=== PATIENT | male | born 1965 | race Caucasian/White ===

== ENCOUNTER 2016-05-22 06:34 | Inpatient (IN) | payer MEDICAID ==
[~2016-05-22] VITALS: Ht 177.8 cm; Wt 124.7 kg
[~2016-05-22 06:34] MED LIST: AMIO200T2 PO; CARV3.122 PO; DABI150C PO; DIVA500T17 PO; FLUO40CA9 PO; FURO40TA4 PO; GABA-585 PO; GABA-586 PO; HYDR-971 PO; HYDR25TA PO; MELO-156 PO; METF500T4 PO; MULT1TAB52 PO; PANT40TA3 PO; PARO40TA3 PO; POTA20TA12 PO; PRAZ1CAP2 PO; RISP0.5T3 PO; SPIR25TA3 PO; TRAZ100T12 PO; VALS40TA2 PO; VENL75CA6 PO
[2016-05-22] MEDS ORDERED: ONDANSETRON PF 4 MG/2 ML VIAL. IV ONE (07:15)
[2016-05-22] MEDS ORDERED: MORPHINE SULFATE 4 MG/ML DISP.SYRIN. IV ONE ×2 (07:15→08:45)
[2016-05-22] MEDS ORDERED: IOHEXOL 300 MG/ML 75 ML VIAL IV ONE (07:15)
[2016-05-22] MEDS ORDERED: IV NORMAL SALINE 500ML BAG 500 ML IV ONE (07:15)
[2016-05-22 07:25] LABS: BASO # 0.1 x10^3/uL (0.0-0.2); BASO % 1 % (0-3); EOS % 5 % (0-3); HEMATOCRIT 47.8 % (39.0-53.0); HEMOGLOBIN 16.5 g/dL (13.0-17.5); LYMPH # 2.8 x10^3/uL (1.0-4.8); LYMPH % 36 % (24-48); MEAN CORPUSCULAR HEMOGLOBIN 35 pg (25-35); MEAN CORPUSCULAR HGB CONC 34 g/dL (31-37); MEAN CORPUSCULAR VOLUME 101 fL (79-100); MONO % 8 % (0-9); NEUT % 50 % (31-73); PLATELET COUNT 162 x10^3/uL (140-400); RED BLOOD COUNT 4.75 x10^6/uL (4.30-5.70); RED CELL DISTRIBUTION WIDTH 12.4 % (11.5-14.5); WHITE BLOOD COUNT 7.8 x10^3/uL (4.0-11.0)
[2016-05-22] MEDS ORDERED: CONTRAST GIVEN MC PRN (07:30)
[2016-05-22 07:35] LABS: GFR 79.8; POTASSIUM 3.3 mmol/L (3.5-5.1)
[2016-05-22 07:41] LABS: ALBUMIN 3.7 g/dL (3.4-5.0); TOTAL BILIRUBIN 0.3 mg/dL (0.2-1.0); TOTAL PROTEIN 7.5 g/dL (6.4-8.2)
[2016-05-22 07:42] LABS: BILIRUBIN,URINE NEGATIVE (NEG); GLUCOSE,URINE >=1000 mg/dL (NEG); NITRITE,URINE NEGATIVE (NEG); PH,URINE 6.5; PROTEIN,URINE NEGATIVE (NEG-TRACE)
--- NOTE | 2016-05-22 07:42 | PHYS DOC ---
Past Medical History Past Medical History: Alcoholism, CHF, Depression, Diabetes-Type II, Heart Disease, Hypertension, Other Additional Past Medical Histor: viral cardiomyopathy, obese, suicide attempt Past Surgical History: Cholecystectomy, Pacemaker, Other Additional Past Surgical Histo: DEFIBRILLATOR, MRSA Alcohol Use: Occasionally Drug Use: None Adult General Chief Complaint Chief Complaint: ABDOMINAL PAIN HPI HPI Patient is a 50 year old male who presents with L side abdominal pain. Patient reports for the past week he has been feeling nauseous and vomiting. He says that what he vomits up is undigested. For the past two days he has been having L sided abdominal pain, feeling bloated, having chills and subjective fever. He also feels SOB, although this is a chronic problem. No chest pain. He has not taken anything for symptoms. No clear inciting or mitigating factors. Review of Systems Review of Systems Constitutional: Chills, subjective fever Eyes: Denies change in visual acuity or eye pain HENT: Denies nasal congestion or sore throat Respiratory: Shortness of breath (chronic) Cardiovascular: Denies chest pain GI: L side abdominal pain, nausea, vomiting, bloating. Denies bloody stools or diarrhea : Denies dysuria or hematuria Musculoskeletal: Denies back pain or joint pain Integument: Denies rash or skin lesions Neurologic: Denies headache, focal weakness or sensory changes Current Medications Current Medications Current Medications Medications (Trade) Dose Ordered Sig/Payam Start Time Stop Time Status Last Admin Dose Admin Info (Do NOT chart on this entry -- for MONITORING) 1 each PRN DAILY PRN 05/22/16 07:30 05/24/16 07:29 Iohexol (Omnipaque 300 Mg/ml) 75 ml 1X ONCE 05/22/16 07:15 05/22/16 07:18 DC Morphine Sulfate 4 mg 4 mg 1X ONCE 05/22/16 08:45 05/22/16 08:46 DC 05/22/16 08:46 4 MG Ondansetron HCl 4 mg 4 mg 1X ONCE 05/22/16 07:15 05/22/16 07:16 DC 05/22/16 07:16 4 MG Promethazine HCl/ Sodium Chloride (Phenergan/Iv Sodium Chloride 0.9% 50ml) 50.5 ml @ 151.5 mls/ hr 1X ONCE 05/22/16 10:15 05/22/16 10:34 DC 05/22/16 10:35 151.5 MLS/HR Sodium Chloride (Iv Sodium Chloride 0.9% 500ml Bag) 500 ml @ 150 mls/hr 1X ONCE 05/22/16 07:15 05/22/16 10:34 DC 05/22/16 07:16 150 MLS/HR Allergies Allergies Allergies Coded Allergies Type Severity Reaction Last Updated Verified nitroglycerin Allergy Severe Anaphylaxis 03/28/15 Yes CHEL Inhibitors Allergy Intermediate 07/23/15 Yes inositol niacinate Allergy Intermediate 05/22/16 Yes niacin Allergy Intermediate 05/22/16 Yes quetiapine Allergy Intermediate 05/22/16 Yes Physical Exam Physical Exam Constitutional: Well developed, well nourished, no acute distress, non-toxic appearance HENT: Normocephalic, atraumatic, bilateral external ears normal Eyes: EOMI, conjunctiva normal, no discharge Neck: Normal range of motion, no stridor Cardiovascular: Mild tachycardia, regular rhythm, no murmur Lungs & Thorax: Bilateral breath sounds clear to auscultation Abdomen: Protuberant, bowel sounds normal, soft, non-distended, LUQ/LLQ TTP without guarding or rebound Skin: Warm, dry, no erythema, no rash Extremities: No obvious deformity, no edema Neurologic: Alert and oriented X 3, no gross deficits noted Psychologic: Affect normal, judgement normal, mood normal Current Patient Data Vital Signs Vital Signs Date Time Temp Pulse Resp B/P Pulse Ox O2 Delivery O2 Flow Rate FiO2 05/22/16 10:37 94 18 147/89 98 05/22/16 06:44 98 Room Air 98.0 Lab Values Laboratory Tests Test 05/22/16 06:54 05/22/16 07:20 White Blood Count 7.8x10^3/uL (4.0-11.0) Red Blood Count 4.75x10^6/uL (4.30-5.70) Hemoglobin 16.5g/dL (13.0-17.5) Hematocrit 47.8% (39.0-53.0) Mean Corpuscular Volume 101fL (79-100) H Mean Corpuscular Hemoglobin 35pg (25-35) Mean Corpuscular Hemoglobin Concent 34g/dL (31-37) Red Cell Distribution Width 12.4% (11.5-14.5) Platelet Count 162x10^3/uL (140-400) Neutrophils (%) (Auto) 50% (31-73) Lymphocytes (%) (Auto) 36% (24-48) Monocytes (%) (Auto) 8% (0-9) Eosinophils (%) (Auto) 5% (0-3) H Basophils (%) (Auto) 1% (0-3) Neutrophils # (Auto) 3.9x10^3uL (1.8-7.7) Lymphocytes # (Auto) 2.8x10^3/uL (1.0-4.8) Monocytes # (Auto) 0.6x10^3/uL (0.0-1.1) Eosinophils # (Auto) 0.4x10^3/uL (0.0-0.7) Basophils # (Auto) 0.1x10^3/uL (0.0-0.2) Sodium Level 142mmol/L (136-145) Potassium Level 3.3mmol/L (3.5-5.1) L Chloride Level 101mmol/L (98-107) Carbon Dioxide Level 30mmol/L (21-32) Anion Gap 11 (6-14) Blood Urea Nitrogen 10mg/dL (8-26) Creatinine 1.0mg/dL (0.7-1.3) Estimated GFR (Cockcroft-Gault) 79.8 BUN/Creatinine Ratio 10 (6-20) Glucose Level 249mg/dL (70-99) H Calcium Level 9.0mg/dL (8.5-10.1) Total Bilirubin 0.3mg/dL (0.2-1.0) Aspartate Amino Transferase (AST) 53U/L (15-37) H Alanine Aminotransferase (ALT) 84U/L (16-63) H Alkaline Phosphatase 86U/L (46-116) Troponin I Quantitative 0.017ng/mL (0.000-0.055) RY-Can-C-Type Natriuretic Peptide 620pg/mL (0-124) H Total Protein 7.5g/dL (6.4-8.2) Albumin 3.7g/dL (3.4-5.0) Albumin/Globulin Ratio 1.0 (1.0-1.7) Lipase 230U/L (73-393) Urine Collection Type Unknown Urine Color Yellow Urine Clarity Clear Urine pH 6.5 Urine Specific [place] >=1.030 Urine Protein Negativemg/dL (NEG-TRACE) Urine Glucose (UA) >=1000mg/dL (NEG) Urine Ketones (Stick) Negativemg/dL (NEG) Urine Blood Negative (NEG) Urine Nitrite Negative (NEG) Urine Bilirubin Negative (NEG) Urine Urobilinogen Dipstick 1.0mg/dL (0.2 mg/dL) Urine Leukocyte Esterase Negative (NEG) Urine RBC 0/HPF (0-2) Urine WBC 0/HPF (0-4) Urine Squamous Epithelial Cells Occ/LPF Urine Bacteria 0/HPF (0-FEW) Urine Mucus Slight/LPF Laboratory Tests 05/22/16 06:54 Laboratory Tests 05/22/16 06:54 EKG EKG EKG (my read): sinus rhythm, rate 104, normal axis, QTc 485ms, PVCs noted, nonspecific ST changes Radiology/Procedures Radiology/Procedures CT A/P: Impression: 1. No acute abdominal findings. No evidence of pancreatitis by imaging, correlate with laboratory values. 2. Fatty infiltration of the liver. 3. Low-density lesion in the left kidney, does not measure water density. This could represent complex cyst. It was not apparent on the ultrasound from July 22, 2015. Recommend nonemergent multiphase CT or MRI for further evaluation. CXR: Impression: No acute thoracic findings. Course & Med Decision Making Course & Med Decision Making Pertinent Labs and Imaging studies reviewed. (See chart for details) Patient is 42-year-old male who presents with abdominal pain and nausea/ vomiting. Will obtain labs, UA, CT abdomen/pelvis to evaluate. IV fluids, pain medication, nausea medication ordered for relief of symptoms. Labs largely unremarkable. Imaging results as above. Discussed results with patient, still feels significantly nauseous. Additional anti-emetic ordered. Even after this he was still nauseous and unable to tolerate PO. Discussed with Dr. Rosenberg, will admit her care for further evaluation and treatment. Dragon Disclaimer Dragon Disclaimer This electronic medical record was generated, in whole or in part, using a voice recognition dictation system. Departure Departure Impression: Primary Impression: Intractable nausea and vomiting Additional Impression: Abdominal pain Disposition: ADMITTED INPATIENT Admitting Physician: Other Condition: STABLE Referrals: UNKNOWN PCP NAME (PCP) Problem Qualifiers JOAQUINA PETERS MD May 22, 2016 07:42
--- NOTE | 2016-05-22 07:44 | RAD ---
Indication: Short of breath for one week. Technique: Upright portable chest radiograph was obtained. Comparison is from March 16, 2016. Findings: The lungs are clear. The heart is within normal limits in size allowing for portable technique. Pacemaker is noted. There is no heart failure. Leads overlie the patient. Impression: No acute thoracic findings.
[2016-05-22 08:03] LABS: BACTERIA,URINE 0 /HPF (0-FEW); RBC,URINE 0 /HPF (0-2); SQUAMOUS EPITHELIAL CELL,UR OCC /LPF; WBC,URINE 0 /HPF (0-4)
--- NOTE | 2016-05-22 08:35 | RAD ---
Indication: Left-sided abdominal pain, vomiting for one week. History of pancreatitis. Technique: Axial images and coronal and sagittal reformatted images are provided. 75 mL of intravenous Omnipaque 300 was administered without complication. No comparison is available. One or more of the following individualized dose reduction techniques were utilized for this examination: 1. Automated exposure control 2. Adjustment of the mA and/or kV according to patient size 3. Use of iterative reconstruction technique Findings: There is minimal atelectasis in the left lung base. There is no pleural effusion. Heart is not enlarged. Pacemaker is noted. There is fatty infiltration of the liver. Gallbladder is absent. Spleen is not enlarged. Pancreas and adrenals are unremarkable. Kidneys are symmetrically perfused. Lesion in the left kidney measures 2 cm and 46 Hounsfield units. There is minimal atheromatous disease in the abdominal aorta without aneurysm. There is a circumaortic left renal vein which is a normal vascular variant. Lack of oral contrast limits evaluation of bowel. There is no small bowel obstruction or mural thickening. There are diverticula in the colon. There are no findings of diverticulitis. A normal appendix is noted. Bladder is decompressed. Prostate is not enlarged. There is no pelvic adenopathy. There are degenerative changes in the spine including prominent disc osteophyte complex at L4-L5 resulting in at least moderate canal stenosis. Impression: 1. No acute abdominal findings. No evidence of pancreatitis by imaging, correlate with laboratory values. 2. Fatty infiltration of the liver. 3. Low-density lesion in the left kidney, does not measure water density. This could represent complex cyst. It was not apparent on the ultrasound from July 22, 2015. Recommend nonemergent multiphase CT or MRI for further evaluation.
[2016-05-22] MEDS ORDERED: PROMETHAZINE 12.5 MG in IV NORMAL SALINE 50ML 50 ML IV ONE (10:15)
--- NOTE | 2016-05-22 11:19 | EKG ---
[facility] [address] [place] [address] Test Date: 2016-05-22 Test Time: 06:55:46 Pat Name: JOHN ARRIETA Department: Room: Gender: M Acquisition Analyst: : 1965 Requested By: JOAQUINA PETERS Order Number: [id number] Reading MD: Farida Valles Measurements Intervals [place] Rate: 102 P: 40 RI: 164 QRS: 21 QRSD: 106 T: 17 QT: 372 QTc: 489 Interpretive Statements SINUS TACHYCARDIA VENTRICULAR PREMATURE COMPLEX(ES) QRS(T) CONTOUR ABNORMALITY CONSISTENT WITH ANTEROSEPTAL INFARCT PROBABLY OLD ABNORMAL ECG Electronically Signed On 05-22-2016 15:21:49 CDT by Farida Valles
[2016-05-22] MEDS ORDERED: ONDANSETRON PF 4 MG/2 ML VIAL. IV PRN (11:30)
[2016-05-22] MEDS ORDERED: DEXTROSE 50% 25 GM / 50ML DISP.SYRIN. IV PRN (11:30)
[2016-05-22] MEDS ORDERED: ACETAMINOPHEN 325 MG TABLET. PO PRN (11:30)
--- NOTE | 2016-05-22 11:50 | ACF ---
Admit Criteria Forms Admit Criteria Forms Admit Criteria Forms VOMITING Clinical Indications for Admission to Inpatient Care ( Place 'X' for any and all applicable criteria): Admission is indicated for ANY ONE of the following(1)(2)(3): [ ]I. Inpatient admission required rather than observation care because of ANY ONE of the following: [ ]i) Hemodynamic instability that is severe or persistent [X]ii) Vomiting that is severe or persistent [ ]iii) Severe electrolyte abnormalities requiring inpatient care [ ]iv) Severe pain requiring acute inpatient management [ ]v) High fever or infection requiring inpatient admission as indicated by ANY ONE of the following(7)(8): [ ]1) Appropriate outpatient or observation care antimicrobial treatment unavailable, not effective, or not feasible [ ]2) Documented bacteremia [ ]3) Temp >104.9 degrees F (40.5 degrees C) (oral) [ ]4) Temp >103.1 degrees F (39.5 C) (oral) or <96.8 degrees F (36 C) (rectal) that does not respond to all emergency treatment measures [ ]vi) Acute renal failure [ ]vii) IV fluid to replace significant ongoing losses (greater than 3 L/m2 per day) [ ]viii) Parenteral nutrition regimen that must be implemented on inpatient basis [ ]ix) Other condition, treatment or monitoring requiring inpatient admission [ ]II. Complete or partial gastrointestinal obstruction [ ]III. Other cause of vomiting requiring hospitalization (eg, poisoning, increased intracranial pressure) [ ]IV. Vomiting due to significant metabolic derangement (eg, severe hypercalcemia, diabetic ketoacidosis) Extended stay beyond goal length of stay may be needed for(1)(4): [ ]a) Severe vomiting [ ]b) Persistent vomiting, vital sign changes, severe electrolyte imbalance , or diagnosed cause of vomiting that requires continued hospitalization (eg, gastrointestinal obstruction , increased intracranial pressure) [ ]c) Surgery to treat identified causes of vomiting (eg, bowel obstruction , intracranial process) [ ]d) Comorbid illness that requires inpatient care (eg, acute heart failure , renal failure) [ ]e) Need for inpatient endoscopy The original [facility] [employer] content created by [employer] has been revised. The portions of the content which have been revised are identified through the use of italic text or in bold, and [employer] has neither reviewed nor approved the modified material. All other unmodified content is copyright [facility]. Please see references footnoted in the original [facility] edition 2016 ERIN RODRIGUEZ May 22, 2016 11:50
[2016-05-22] MEDS: INSULIN ASPART 300 UNITS/3 ML INSULN.PEN SQ SCH ×2 (12:00→17:00)
[2016-05-22 13:24] VITALS: BP 128/92
[2016-05-22] MEDS: MORPHINE SULFATE 2 MG/ML DISP.SYRIN. IV PRN ×2 (14:10→19:27)
[2016-05-22 15:00] VITALS: BP 146/88
[2016-05-22] MEDS ORDERED: SITA100T PO (16:58)
[2016-05-22] MEDS ORDERED: ATOR40TA59 PO (16:58)
[2016-05-22 19:00] VITALS: BP 133/87
[2016-05-22] MEDS ORDERED: IV 1/2 NORMAL SALINE 500 ML IV ONE (20:30)
[2016-05-22] MEDS ORDERED: METOCLOPRAMIDE HCL 10 MG/10 ML SOLUTION. PO PRN (20:45)
[2016-05-22] MEDS ORDERED: ATORVASTATIN CALCIUM 40 MG TABLET. PO SCH (21:00)
--- NOTE | 2016-05-22 21:20 | HP ---
ADMIT DATE: 05/22/2016 CHIEF COMPLAINT: Abdominal pain. HISTORY OF PRESENT ILLNESS: The patient is a 50-year-old, morbidly obese gentleman, with cardiomyopathy thought to be viral in etiology, diabetes type 2, heart disease, hypertension, status post pacemaker placement, who presented to the Emergency Room with 1 week of malaise, fatigue, nausea, and vomiting. He relates that he has vomiting shortly after eating, but even after a while after p.o. intake, he vomits undigested food. He also complains of severe left-sided abdominal pain, feeling bloated, has subjective fevers, although never took his temperature. He denies any chest pain, any palpitations. Has chronic shortness of breath. When he googled on his symptoms on the computer, he thought this was consistent with pancreatitis which he actually had in the distant past. That however had been an incidental finding when he had presented for chest pain at [facility]. In the Emergency Room, the CT actually showed no significant findings. Specifically noted no evidence of pancreatitis by imaging, but fatty infiltration of the liver and a cyst on the left kidney. Labs otherwise were inconclusive. Lipase was negative. proBNP was 620, essentially his baseline. BUN, creatinine, and other labs were normal. He was therefore admitted for symptom control. PAST MEDICAL HISTORY: CAD, viral cardiomyopathy, diabetes mellitus, hypertension, status post AICD placement, obesity, status post cholecystectomy. FAMILY HISTORY: Unknown to the patient. SOCIAL HISTORY: Lives with his girlfriend. No tobacco, no alcohol. ALLERGIES: CHEL INHIBITORS, INOSITOL, NIACIN, NITROGLYCERIN, AND QUETIAPINE. MEDICATIONS: MAR reconciled with home medications. REVIEW OF SYSTEMS: Positive as per HPI. Most bothersome is the left-sided abdominal pain and epigastric pain, that can be 8/10 without pain medications. PHYSICAL EXAMINATION: VITAL SIGNS: From today show a blood pressure of 146/88, heart rate of 80, respiratory rate at 20. He is afebrile. GENERAL: This is a massively obese, 50-year-old, gentleman, alert and oriented, in no acute distress. HEENT: Shows no scleral icterus. NECK: Supple. LUNGS: Clear to auscultation bilaterally. CARDIOVASCULAR: Has regular rate and rhythm. AICD palpable in the left upper chest. ABDOMEN: Massively obese, tight in the upper quadrants, with tenderness to palpation in the epigastric to right upper quadrant area. SKIN: Warm, soft and dry, without any rash. EXTREMITIES: Show no edema. LABORATORY DATA: CBC from today shows a WBC of 7.8, hemoglobin 16.5, with an MCV of 101, and a platelet count of 162. Chemistries with a BUN and creatinine of 10 and 1, potassium at 3.3, glucose at 249. AST, ALT are 53 and 84, which is essentially his baseline. Cardiac enzymes were negative. ProBNP 620. Urine positive for greater than 1000mg glucose. IMAGING STUDIES: CT of the abdomen and pelvis without any acute findings, specifically no signs of pancreatitis. ASSESSMENT AND PLAN: The patient is a 50-year-old, massively obese gentleman, with coronary artery disease, congestive heart failure, diabetes, who presents to the Emergency Room with intractable nausea and vomiting as well as epigastric and left upper quadrant abdominal pain. The sequence of the events leading to his hospitalization make a viral gastroenteritis highly likely. He clearly does not have pancreatitis as he had suspected. Cannot rule out diabetic gastroparesis or other etiologies, although would not expect onset to be sudden. We will very gently hydrate him, monitoring his cardiac status. Hold Lasix for now. Monitor electrolytes as well. He will receive IV antiemetics. We will do gentle clear liquids. The patient is diabetic, typically on Januvia. We will hold the medication for now. Start insulin sliding scale in the meantime. All his other cardiac medications will be continued. 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 BRENDON ANGUIANO MD DR: MARCUS/nts JOB#: [id number] / [id number] RUTHIE
[2016-05-22] MEDS: AMIODARONE HCL 200 MG TABLET PO SCH (21:22)
[2016-05-22] MEDS: CARVEDILOL 3.125 MG TABLET PO SCH (21:23)
[2016-05-22 23:00] VITALS: BP 121/73
[2016-05-23] MEDS: MORPHINE SULFATE 2 MG/ML DISP.SYRIN. IV PRN ×3 (02:23→08:24)
[2016-05-23 03:00] VITALS: BP 125/89
[2016-05-23 05:28] LABS: BASO # 0.1 x10^3/uL (0.0-0.2); BASO % 1 % (0-3); EOS % 7 % (0-3); HEMATOCRIT 46.1 % (39.0-53.0); HEMOGLOBIN 15.5 g/dL (13.0-17.5); LYMPH % 30 % (24-48); MEAN CORPUSCULAR HEMOGLOBIN 34 pg (25-35); MEAN CORPUSCULAR HGB CONC 34 g/dL (31-37); MEAN CORPUSCULAR VOLUME 101 fL (79-100); MONO % 8 % (0-9); NEUT % 54 % (31-73); PLATELET COUNT 141 x10^3/uL (140-400); RED BLOOD COUNT 4.55 x10^6/uL (4.30-5.70); RED CELL DISTRIBUTION WIDTH 12.4 % (11.5-14.5); WHITE BLOOD COUNT 6.8 x10^3/uL (4.0-11.0)
[2016-05-23 06:02] LABS: CALCIUM 8.3 mg/dL (8.5-10.1); CREATININE 0.8 mg/dL (0.7-1.3); GFR 103.2; POTASSIUM 4.1 mmol/L (3.5-5.1)
[2016-05-23 07:00] VITALS: BP 123/91
[2016-05-23] MEDS: INSULIN ASPART 300 UNITS/3 ML INSULN.PEN SQ SCH ×2 (08:00→11:11)
[2016-05-23] MEDS: AMIODARONE HCL 200 MG TABLET PO SCH (08:22)
[2016-05-23] MEDS: CARVEDILOL 3.125 MG TABLET PO SCH (08:23)
[2016-05-23] MEDS ORDERED: LOSARTAN POTASSIUM 25 MG TABLET. PO SCH (09:00)
[2016-05-23 10:50] VITALS: BP 118/81
--- NOTE | 2016-05-23 11:55 | PDOC ---
PROGRESS NOTES Chief Complaint Chief Complaint acute abd pain left flank to abd pain Hx V tach, has pacer obesity, BMI 40 Dm2, History of Present Illness History of Present Illness 09/12 pain, not much relief yet consults placed Vitals Vitals Vital Signs Date Time Temp Pulse Resp B/P Pulse Ox O2 Delivery O2 Flow Rate FiO2 05/23/16 10:50 94.8 91 20 118/81 90 Room Air 94.8 Physical Exam General: Alert, Oriented X3, Cooperative, No acute distress Heart: Regular rate Lungs: Clear Abdomen: Normal bowel sounds, Soft (obese) Extremities: No clubbing Skin: No rashes Labs LABS Laboratory Tests Test 05/22/16 12:34 05/22/16 16:59 05/22/16 21:35 05/23/16 05:15 Glucose (Fingerstick) 145mg/dL (70-99) 144mg/dL (70-99) 234mg/dL (70-99) White Blood Count 6.8x10^3/uL (4.0-11.0) Red Blood Count 4.55x10^6/uL (4.30-5.70) Hemoglobin 15.5g/dL (13.0-17.5) Hematocrit 46.1% (39.0-53.0) Mean Corpuscular Volume 101fL (79-100) Mean Corpuscular Hemoglobin 34pg (25-35) Mean Corpuscular Hemoglobin Concent 34g/dL (31-37) Red Cell Distribution Width 12.4% (11.5-14.5) Platelet Count 141x10^3/uL (140-400) Neutrophils (%) (Auto) 54% (31-73) Lymphocytes (%) (Auto) 30% (24-48) Monocytes (%) (Auto) 8% (0-9) Eosinophils (%) (Auto) 7% (0-3) Basophils (%) (Auto) 1% (0-3) Neutrophils # (Auto) 3.7x10^3uL (1.8-7.7) Lymphocytes # (Auto) 2.0x10^3/uL (1.0-4.8) Monocytes # (Auto) 0.5x10^3/uL (0.0-1.1) Eosinophils # (Auto) 0.5x10^3/uL (0.0-0.7) Basophils # (Auto) 0.1x10^3/uL (0.0-0.2) Sodium Level 142mmol/L (136-145) Potassium Level 4.1mmol/L (3.5-5.1) Chloride Level 103mmol/L (98-107) Carbon Dioxide Level 29mmol/L (21-32) Anion Gap 10 (6-14) Blood Urea Nitrogen 15mg/dL (8-26) Creatinine 0.8mg/dL (0.7-1.3) Estimated GFR (Cockcroft-Gault) 103.2 Glucose Level 128mg/dL (70-99) Calcium Level 8.3mg/dL (8.5-10.1) Review of Systems Review of Systems abd pain, no stool scant PO intake 3 days did OK with broth this AM Assessment and Plan Assessmemt and Plan Problems Medical Problems: (1) Abdominal pain Status: Acute (2) Intractable nausea and vomiting Status: Acute Problems: Comment Review of Relevant I have reviewed the following items laurel (where applicable) has been applied. Labs Laboratory Tests Test 05/22/16 06:54 05/22/16 07:20 05/22/16 12:34 05/22/16 16:59 White Blood Count 7.8x10^3/uL (4.0-11.0) Red Blood Count 4.75x10^6/uL (4.30-5.70) Hemoglobin 16.5g/dL (13.0-17.5) Hematocrit 47.8% (39.0-53.0) Mean Corpuscular Volume 101fL (79-100) Mean Corpuscular Hemoglobin 35pg (25-35) Mean Corpuscular Hemoglobin Concent 34g/dL (31-37) Red Cell Distribution Width 12.4% (11.5-14.5) Platelet Count 162x10^3/uL (140-400) Neutrophils (%) (Auto) 50% (31-73) Lymphocytes (%) (Auto) 36% (24-48) Monocytes (%) (Auto) 8% (0-9) Eosinophils (%) (Auto) 5% (0-3) Basophils (%) (Auto) 1% (0-3) Neutrophils # (Auto) 3.9x10^3uL (1.8-7.7) Lymphocytes # (Auto) 2.8x10^3/uL (1.0-4.8) Monocytes # (Auto) 0.6x10^3/uL (0.0-1.1) Eosinophils # (Auto) 0.4x10^3/uL (0.0-0.7) Basophils # (Auto) 0.1x10^3/uL (0.0-0.2) Sodium Level 142mmol/L (136-145) Potassium Level 3.3mmol/L (3.5-5.1) Chloride Level 101mmol/L (98-107) Carbon Dioxide Level 30mmol/L (21-32) Anion Gap 11 (6-14) Blood Urea Nitrogen 10mg/dL (8-26) Creatinine 1.0mg/dL (0.7-1.3) Estimated GFR (Cockcroft-Gault) 79.8 BUN/Creatinine Ratio 10 (6-20) Glucose Level 249mg/dL (70-99) Calcium Level 9.0mg/dL (8.5-10.1) Total Bilirubin 0.3mg/dL (0.2-1.0) Aspartate Amino Transf (AST/SGOT) 53U/L (15-37) Alanine Aminotransferase (ALT/SGPT) 84U/L (16-63) Alkaline Phosphatase 86U/L (46-116) Troponin I Quantitative 0.017ng/mL (0.000-0.055) RJ-Zed-W-Type Natriuretic Peptide 620pg/mL (0-124) Total Protein 7.5g/dL (6.4-8.2) Albumin 3.7g/dL (3.4-5.0) Albumin/Globulin Ratio 1.0 (1.0-1.7) Lipase 230U/L (73-393) Urine Collection Type Unknown Urine Color Yellow Urine Clarity Clear Urine pH 6.5 Urine Specific [place] >=1.030 Urine Protein Negativemg/dL (NEG-TRACE) Urine Glucose (UA) >=1000mg/dL (NEG) Urine Ketones (Stick) Negativemg/dL (NEG) Urine Blood Negative (NEG) Urine Nitrite Negative (NEG) Urine Bilirubin Negative (NEG) Urine Urobilinogen Dipstick 1.0mg/dL (0.2 mg/dL) Urine Leukocyte Esterase Negative (NEG) Urine RBC 0/HPF (0-2) Urine WBC 0/HPF (0-4) Urine Squamous Epithelial Cells Occ/LPF Urine Bacteria 0/HPF (0-FEW) Urine Mucus Slight/LPF Glucose (Fingerstick) 145mg/dL (70-99) 144mg/dL (70-99) Test 05/22/16 21:35 05/23/16 05:15 Glucose (Fingerstick) 234mg/dL (70-99) White Blood Count 6.8x10^3/uL (4.0-11.0) Red Blood Count 4.55x10^6/uL (4.30-5.70) Hemoglobin 15.5g/dL (13.0-17.5) Hematocrit 46.1% (39.0-53.0) Mean Corpuscular Volume 101fL (79-100) Mean Corpuscular Hemoglobin 34pg (25-35) Mean Corpuscular Hemoglobin Concent 34g/dL (31-37) Red Cell Distribution Width 12.4% (11.5-14.5) Platelet Count 141x10^3/uL (140-400) Neutrophils (%) (Auto) 54% (31-73) Lymphocytes (%) (Auto) 30% (24-48) Monocytes (%) (Auto) 8% (0-9) Eosinophils (%) (Auto) 7% (0-3) Basophils (%) (Auto) 1% (0-3) Neutrophils # (Auto) 3.7x10^3uL (1.8-7.7) Lymphocytes # (Auto) 2.0x10^3/uL (1.0-4.8) Monocytes # (Auto) 0.5x10^3/uL (0.0-1.1) Eosinophils # (Auto) 0.5x10^3/uL (0.0-0.7) Basophils # (Auto) 0.1x10^3/uL (0.0-0.2) Sodium Level 142mmol/L (136-145) Potassium Level 4.1mmol/L (3.5-5.1) Chloride Level 103mmol/L (98-107) Carbon Dioxide Level 29mmol/L (21-32) Anion Gap 10 (6-14) Blood Urea Nitrogen 15mg/dL (8-26) Creatinine 0.8mg/dL (0.7-1.3) Estimated GFR (Cockcroft-Gault) 103.2 Glucose Level 128mg/dL (70-99) Calcium Level 8.3mg/dL (8.5-10.1) Laboratory Tests Test 05/22/16 12:34 05/22/16 16:59 05/22/16 21:35 05/23/16 05:15 Glucose (Fingerstick) 145mg/dL (70-99) 144mg/dL (70-99) 234mg/dL (70-99) White Blood Count 6.8x10^3/uL (4.0-11.0) Red Blood Count 4.55x10^6/uL (4.30-5.70) Hemoglobin 15.5g/dL (13.0-17.5) Hematocrit 46.1% (39.0-53.0) Mean Corpuscular Volume 101fL (79-100) Mean Corpuscular Hemoglobin 34pg (25-35) Mean Corpuscular Hemoglobin Concent 34g/dL (31-37) Red Cell Distribution Width 12.4% (11.5-14.5) Platelet Count 141x10^3/uL (140-400) Neutrophils (%) (Auto) 54% (31-73) Lymphocytes (%) (Auto) 30% (24-48) Monocytes (%) (Auto) 8% (0-9) Eosinophils (%) (Auto) 7% (0-3) Basophils (%) (Auto) 1% (0-3) Neutrophils # (Auto) 3.7x10^3uL (1.8-7.7) Lymphocytes # (Auto) 2.0x10^3/uL (1.0-4.8) Monocytes # (Auto) 0.5x10^3/uL (0.0-1.1) Eosinophils # (Auto) 0.5x10^3/uL (0.0-0.7) Basophils # (Auto) 0.1x10^3/uL (0.0-0.2) Sodium Level 142mmol/L (136-145) Potassium Level 4.1mmol/L (3.5-5.1) Chloride Level 103mmol/L (98-107) Carbon Dioxide Level 29mmol/L (21-32) Anion Gap 10 (6-14) Blood Urea Nitrogen 15mg/dL (8-26) Creatinine 0.8mg/dL (0.7-1.3) Estimated GFR (Cockcroft-Gault) 103.2 Glucose Level 128mg/dL (70-99) Calcium Level 8.3mg/dL (8.5-10.1) Medications Current Medications Ondansetron HCl (Zofran) 4 mg 1X ONCE IV Last administered on 05/22/16 07:16 ; Start 05/22/16 at 07:15; Stop 05/22/16 at 07:16; Status DC Morphine Sulfate 4 mg 4 mg 1X ONCE IV Last administered on 05/22/16 07:17; Start 05/22/16 at 07:15; Stop 05/22/16 at 07:16; Status DC Sodium Chloride (Iv Sodium Chloride 0.9% 500ml Bag) 500 ml @ 150 mls/hr 1X ONCE IV Last administered on 05/22/16 07:16; Start 05/22/16 at 07:15; Stop at 10:34; Status DC Iohexol (Omnipaque 300 Mg/ml) 75 ml 1X ONCE IV ; Start 05/22/16 at 07:15; Stop 05/22/16 at 07:18; Status DC Info (Do NOT chart on this entry -- for MONITORING) 1 each PRN DAILY PRN MC SEE COMMENTS; Start 05/22/16 at 07:30; Stop 05/24/16 at 07:29 Morphine Sulfate 4 mg 4 mg 1X ONCE IV Last administered on 05/22/16 08:46; Start 05/22/16 at 08:45; Stop 05/22/16 at 08:46; Status DC Promethazine HCl/ Sodium Chloride (Phenergan/Iv Sodium Chloride 0.9% 50ml) 50.5 ml @ 151.5 mls/ hr 1X ONCE IV Last administered on 05/22/16 10:35; Start at 10:15; Stop 05/22/16 at 10:34; Status DC Ondansetron HCl (Zofran) 4 mg PRN Q8HRS PRN IV NAUSEA/VOMITING; Start 05/22/16 at 11:30; Stop 05/22/16 at 20:35; Status DC Morphine Sulfate 2 mg PRN Q2HR PRN IV PAIN Last administered on 05/23/16 08:24 ; Start 05/22/16 at 11:30; Stop 05/23/16 at 11:29; Status DC Acetaminophen (Tylenol) 650 mg PRN Q4HRS PRN PO FEVER; Start 05/22/16 at 11:30 ; Stop 05/23/16 at 11:29; Status DC Insulin Aspart (Novolog) 0-7 UNITS TIDWMEALS SQ ; Start 05/22/16 at 12:00 Dextrose 12.5 gm PRN Q15MIN PRN IV SEE COMMENTS; Start 05/22/16 at 11:30 Amiodarone HCl (Cordarone) 100 mg BID PO Last administered on 05/23/16 08:22; Start 05/22/16 at 21:00 Atorvastatin Calcium (Lipitor) 40 mg QHS PO Last administered on 05/22/16 21: 21; Start 05/22/16 at 21:00 Carvedilol (Coreg) 3.125 mg BIDWMEALS PO Last administered on 05/23/16 08:23; Start 05/22/16 at 20:30 Losartan Potassium 25 mg 25 mg DAILY PO Last administered on 05/23/16 08:23; Start 05/23/16 at 09:00 Sodium Chloride (Iv Sodium Chloride 0.45%) 500 ml @ 75 mls/hr 1X ONCE IV Last administered on 05/22/16 20:30; Start 05/22/16 at 20:30; Stop 05/23/16 at 03:09; Status DC Metoclopramide HCl (Reglan) 5 mg PRN Q6HRS PRN PO NAUSEA/VOMITING; Start at 20:45 Active Scripts Active Reported Atorvastatin Calcium 40 Mg Tablet 1 Tab PO QHS Januvia (Sitagliptin Phosphate) 100 Mg Tablet 1 Tab PO DAILY Amiodarone Hcl 200 Mg Tablet 100 Mg PO BID Diovan (Valsartan) 40 Mg Tablet 40 Mg PO DAILY Carvedilol 3.125 Mg Tablet 1 Tab PO BID Spironolactone 25 Mg Tablet 1 Tab PO DAILY Furosemide 40 Mg Tablet 1 Tab PO QODAY Potassium Chloride 20 Meq Tab.er.prt 1 Tab PO QODAY Vitals/I & O Vital Sign - Last 24 Hours 05/22/16 05/22/16 05/22/16 05/22/16 12:15 13:24 13:30 14:10 Temp 98.1 98.1 Pulse 87 Resp 20 B/P 128/92 Pulse Ox 96 O2 Delivery Room Air Room Air Room Air 05/22/16 05/22/16 05/22/16 05/22/16 15:00 19:00 19:27 20:00 Temp 98.0 97.9 98.0 97.9 Pulse 80 89 Resp 18 B/P 146/88 133/87 Pulse Ox 98 94 O2 Delivery Room Air Room Air Room Air 05/22/16 05/22/16 05/22/16 05/23/16 21:22 21:23 23:00 02:23 Temp 98.4 98.4 Pulse 89 89 88 Resp 16 20 B/P 133/87 133/87 121/73 Pulse Ox 93 O2 Delivery Room Air 05/23/16 05/23/16 05/23/16 05/23/16 03:00 05:22 06:06 07:00 Temp 98.9 97.7 98.9 97.7 Pulse 85 87 Resp 20 18 20 B/P 125/89 123/91 Pulse Ox 91 O2 Delivery Room Air Room Air 05/23/16 05/23/16 05/23/16 05/23/16 08:00 08:22 08:23 08:23 Pulse 87 87 87 B/P 123/91 123/91 123/91 O2 Delivery Room Air 05/23/16 05/23/16 05/23/16 08:24 09:44 10:50 Temp 94.8 94.8 Pulse 91 Resp 20 B/P 118/81 Pulse Ox 90 O2 Delivery Room Air Room Air Room Air Intake and Output 05/22/16 05/22/16 05/23/16 15:00 23:00 07:00 Intake Total 12 ml 480 ml Output Total 500 ml Balance 12 ml 480 ml -500 ml STEVEN CONCEPCION MD May 23, 2016 11:55
[2016-05-23] MEDS ORDERED: OXYCODONE/APAP 5/325 TABLET. PO PRN (12:00)
[2016-05-23] MEDS ORDERED: FENTANYL PF 100 MCG/2 ML VIAL. IV PRN (12:00)
[2016-05-23] MEDS ORDERED: MAGNESIUM HYDROXIDE 2,400 MG/30 ML ORAL.SUSP. PO PRN (12:00)
[2016-05-23] MEDS ORDERED: POLYETHYLENE GLYCOL 3350 17 GM PACKET. PO PRN (12:00)
[2016-05-23] MEDS ORDERED: FAMOTIDINE 20 MG/2 ML VIAL IVP ONE (12:30)
[2016-05-23] MEDS ORDERED: LIDO:MAALOX:DONNATAL 1:1:1 15 ML SINGLE DOSE SWSW ONE (12:30)
[2016-05-23] MEDS ORDERED: POLYETHYLENE GLYCOL 3350 17 GM PACKET. PO ONE (12:30)
--- NOTE | 2016-05-23 13:44 | PDOC2 ---
GI CONSULT Reason For Consult: Nausea and vomiting HPI: HPI: 50 y/o male admitted 05/23/15. Reports h/o irregular eating habits, sometimes eating only once daily or even skipping days. For the past week has noted vomiting of undigested food (long after last meal), left-sided abdominal pain, bloating, and subjective fevers. Believes he has gained weight and says his girlfriend commented on bloated abdomen. First describes having 5-6 small formed stools daily w/o straining and then reports occasional post-prandial stools, also w/ "undigested food" (names hamburger). Last BM 05/21, last vomited 05/22. Denies chronic GI issues except for occasional bloating. Did see Dr. Toro previously for elevated LFTs. Has never had heartburn/reflux. Does recall an episode of chest/abd pain at [facility] where he was told he had an abnormal pancreas test. (No suggestion of real pancreatitis when old records reviewed.) Has had cholecystectomy. No previous EGD or colonoscopy. H/o DM previously on insulin, now only Januvia w/ A1c last month of 6.7. Glucose ranges from 90-[address] here w/ fatty liver, left kidney lesion. PMH: PMH: HTN, HLD, CHF, DM, viral cardiomyopathy, anxiety/depression, cardiac cath, AICD placement, obesity, nephrolithiasis (noted w/ hydroureter on CT @ [facility]), cholecystectomy, I&D for MRSA FH: Family History: Cancer (renal - grandfather), DM, Hypertension, Other (thyroid disease - mother) Social History: Smoke: <1 pack per day ALCOHOL: other (at one time drank vodka heavily, now an occasional beer when w / friends) Drugs: None ROS: GEN: +fevers/chills HEENT: Denies blurred vision, sore throat CV: Denies chest pain RESP: Denies shortness of air, cough GI: Per HPI : Denies hematuria, dysuria ENDO: +weight gain NEURO: Denies confusion, dizziness MSK: Denies weakness, joint pain/swelling SKIN: Denies jaundice, pruritus VItals: Vitals: Vital Signs Date Time Temp Pulse Resp B/P Pulse Ox O2 Delivery O2 Flow Rate FiO2 05/23/16 12:50 Room Air 05/23/16 10:50 94.8 91 20 118/81 90 94.8 Labs: Labs: Laboratory Tests Test 05/22/16 16:59 05/22/16 21:35 05/23/16 05:15 Glucose (Fingerstick) 144mg/dL (70-99) 234mg/dL (70-99) White Blood Count 6.8x10^3/uL (4.0-11.0) Red Blood Count 4.55x10^6/uL (4.30-5.70) Hemoglobin 15.5g/dL (13.0-17.5) Hematocrit 46.1% (39.0-53.0) Mean Corpuscular Volume 101fL (79-100) Mean Corpuscular Hemoglobin 34pg (25-35) Mean Corpuscular Hemoglobin Concent 34g/dL (31-37) Red Cell Distribution Width 12.4% (11.5-14.5) Platelet Count 141x10^3/uL (140-400) Neutrophils (%) (Auto) 54% (31-73) Lymphocytes (%) (Auto) 30% (24-48) Monocytes (%) (Auto) 8% (0-9) Eosinophils (%) (Auto) 7% (0-3) Basophils (%) (Auto) 1% (0-3) Neutrophils # (Auto) 3.7x10^3uL (1.8-7.7) Lymphocytes # (Auto) 2.0x10^3/uL (1.0-4.8) Monocytes # (Auto) 0.5x10^3/uL (0.0-1.1) Eosinophils # (Auto) 0.5x10^3/uL (0.0-0.7) Basophils # (Auto) 0.1x10^3/uL (0.0-0.2) Sodium Level 142mmol/L (136-145) Potassium Level 4.1mmol/L (3.5-5.1) Chloride Level 103mmol/L (98-107) Carbon Dioxide Level 29mmol/L (21-32) Anion Gap 10 (6-14) Blood Urea Nitrogen 15mg/dL (8-26) Creatinine 0.8mg/dL (0.7-1.3) Estimated GFR (Cockcroft-Gault) 103.2 Glucose Level 128mg/dL (70-99) Calcium Level 8.3mg/dL (8.5-10.1) Allergies: Coded Allergies: nitroglycerin (Verified Allergy, Severe, Anaphylaxis, 03/28/15) CHEL Inhibitors (Verified Allergy, Intermediate, 07/23/15) inositol niacinate (Verified Allergy, Intermediate, 05/22/16) niacin (Verified Allergy, Intermediate, 05/22/16) quetiapine (Verified Allergy, Intermediate, 05/22/16) Medications: Current Medications Medications (Trade) Dose Ordered Sig/Payam Route PRN Reason Start Time Stop Time Status Last Admin Dose Admin Amiodarone HCl (Cordarone) 100 mg BID PO 05/22/16 21:00 05/23/16 08:22 Atorvastatin Calcium (Lipitor) 40 mg QHS PO 05/22/16 21:00 05/22/16 21:21 Carvedilol (Coreg) 3.125 mg BIDWMEALS PO 05/22/16 20:30 05/23/16 08:23 Losartan Potassium 25 mg 25 mg DAILY PO 05/23/16 09:00 05/23/16 08:23 Sodium Chloride (Iv Sodium Chloride 0.45%) 500 ml @ 75 mls/hr 1X ONCE IV 05/22/16 20:30 05/23/16 03:09 DC 05/22/16 20:30 Fentanyl Citrate (Fentanyl 2ml Vial) 50 mcg PRN Q2HR PRN IV PAIN 05/23/16 12:00 05/23/16 12:50 Multi-Ingredient Mouthwash/Gargle (Gi Cocktail Single Dose) 15 ml 1X ONCE SWSW 05/23/16 12:30 05/23/16 12:31 DC 05/23/16 12:40 Famotidine (Pepcid) 20 mg 1X ONCE IVP 05/23/16 12:30 05/23/16 12:31 DC 05/23/16 12:40 Polyethylene Glycol (miraLAX PACKET) 17 gm 1X ONCE PO 05/23/16 12:30 05/23/16 12:31 DC 05/23/16 12:40 Imaging: Imaging: CXR 05/22/16 Impression: No acute thoracic findings. CT A/P 05/22/16 Impression: 1. No acute abdominal findings. No evidence of pancreatitis by imaging, correlate with laboratory values. 2. Fatty infiltration of the liver. 3. Low-density lesion in the left kidney, does not measure water density. This could represent complex cyst. It was not apparent on the ultrasound from July. Recommend nonemergent multiphase CT or MRI for further evaluation. PE: GEN: NAD HEENT: Atraumatic, PERRL LUNGS: CTAB anteriorly HEART: RRR ABD: BS+, obese, somewhat firm, tenderness to LUQ to left flank and epigastrium , some to LLQ EXTREMITY: No edema SKIN: No rashes, no jaundice NEURO/PSYCH: A & O 3 A/P: A/P: Vomiting, abd pain, bloating -recent onset w/ subjective fevers -describes vomiting of undigested food -some irregular eating and bowel habits -CT w/ fatty liver and left renal lesion/cyst -h/o DM - controlled CRC screen -none previous, average risk -- ?gastroparesis, viral illness JARRETT AGOSTO May 23, 2016 13:44
[2016-05-23] MEDS ORDERED: FAMOTIDINE 20 MG TABLET. PO SCH (21:00)
== END 2016-05-23 15:06 | disposition left against medical advice (07) | DRG 866 ==
LOC: ER 06:34 → 5 SOUTH 11:20
PROVIDERS: ADMIT Internal Medicine Hematology & Oncology; ATTEND Internal Medicine Hematology & Oncology
DX: B34.9 Viral infection, unspecified (principal); I42.9 Cardiomyopathy, unspecified; N13.4 Hydroureter; E11.9 Type 2 diabetes mellitus without complications; E66.8 Other obesity; I11.0 Hypertensive heart disease with heart failure; E11.43 Type 2 diabetes mellitus with diabetic autonomic (poly)neuropathy; K31.84 Gastroparesis; F32.9 Major depressive disorder, single episode, unspecified; E78.5 Hyperlipidemia, unspecified; F41.9 Anxiety disorder, unspecified; I25.10 Atherosclerotic heart disease of native coronary artery without angina pectoris; I50.9 Heart failure, unspecified; E66.01 Morbid (severe) obesity due to excess calories; K76.0 Fatty (change of) liver, not elsewhere classified; N20.0 Calculus of kidney; N28.9 Disorder of kidney and ureter, unspecified; R79.89 Other specified abnormal findings of blood chemistry; Z80.51 Family history of malignant neoplasm of kidney; Z82.49 Family history of ischemic heart disease and other diseases of the circulatory system; Z90.49 Acquired absence of other specified parts of digestive tract; Z83.3 Family history of diabetes mellitus; Z68.39 Body mass index [BMI] 39.0-39.9, adult; Z88.8 Allergy status to other drugs, medicaments and biological substances; Z95.810 Presence of automatic (implantable) cardiac defibrillator
CPT/HCPCS: 36415; 71010; 74177; 80048; 80053; 81001; 82947; 83690; 83880; 84484; 85027; 93005; 96361; 96365; 96366; 96375; 96376; J1815; J2270; J2405; J2550; J3010; J7040; S0028; 99285-25

== ENCOUNTER 2016-05-30 02:01 | Inpatient (IN) | payer MEDICAID ==
[~2016-05-30] VITALS: Ht 177.8 cm; Wt 129.9 kg
[~2016-05-30 02:01] MED LIST changes: +ATOR40TA59 PO; +SITA100T PO
[2016-05-30] MEDS ORDERED: IV NORMAL SALINE 1000ML BAG 1,000 ML IV SCH (02:30)
[2016-05-30 02:40] LABS: BASO # 0.1 x10^3/uL (0.0-0.2); BASO % 1 % (0-3); EOS % 9 % (0-3); HEMATOCRIT 46.3 % (39.0-53.0); HEMOGLOBIN 15.7 g/dL (13.0-17.5); LYMPH # 1.8 x10^3/uL (1.0-4.8); LYMPH % 26 % (24-48); MEAN CORPUSCULAR HEMOGLOBIN 34 pg (25-35); MEAN CORPUSCULAR HGB CONC 34 g/dL (31-37); MEAN CORPUSCULAR VOLUME 101 fL (79-100); MONO % 9 % (0-9); NEUT % 56 % (31-73); PLATELET COUNT 150 x10^3/uL (140-400); RED CELL DISTRIBUTION WIDTH 12.9 % (11.5-14.5); WHITE BLOOD COUNT 6.9 x10^3/uL (4.0-11.0)
--- NOTE | 2016-05-30 02:42 | PHYS DOC ---
Past Medical History Past Medical History: Alcoholism, CHF, Depression, Diabetes-Type II, Heart Disease, Hypertension, Other Additional Past Medical Histor: viral cardiomyopathy, obese, suicide attempt Past Surgical History: Cholecystectomy, Pacemaker, Other Additional Past Surgical Histo: DEFIBRILLATOR, MRSA Alcohol Use: Occasionally Drug Use: None Adult General Chief Complaint Chief Complaint: CHEST PAIN HPI HPI Patient is a 50 year old male who presents with complaint of syncope and chest pain. Patient states that his chest pain has been present for the past 2 hours. Patient states that he was going out to his car to try to get his wallet when he suddenly found himself on the ground being attended to by a neighbor. The neighbor stated to the patient that he may have been out approximately 5-8 minutes. Patient states that since then he has had substernal left-sided chest pain radiating to her shoulder. Patient has history of coronary artery disease and cardiomyopathy. The patient rates his pain currently is 8 out of 10. Patient also states that he has been having left-sided abdominal pain and admits that 3 days ago he had a bowel movement followed by passage of several clots. Patient states that his stools have been black ever since. Review of Systems Review of Systems Constitutional: Denies fever or chills [] Eyes: Denies change in visual acuity, redness, or eye pain [] HENT: Denies nasal congestion or sore throat [] Respiratory: Denies cough or shortness of breath [] Cardiovascular: Chest pain, syncope [] GI: Abdominal pain, nausea, bloody stools, denies vomiting or diarrhea [] : Denies dysuria or hematuria [] Musculoskeletal: Denies back pain or joint pain [] Integument: Denies rash or skin lesions [] Neurologic: Denies headache, focal weakness or sensory changes [] Endocrine: Denies polyuria or polydipsia [] Current Medications Current Medications Current Medications Medications (Trade) Dose Ordered Sig/Payam Start Time Stop Time Status Last Admin Dose Admin Aspirin 324 mg 324 mg 1X ONCE 05/30/16 02:45 05/30/16 02:46 DC 05/30/16 03:06 324 MG Sodium Chloride (Iv Sodium Chloride 0.9% 1000ml Bag) 1,000 ml @ 100 mls/hr Q10H 05/30/16 02:30 05/30/16 12:29 05/30/16 03:06 100 MLS/HR Allergies Allergies Allergies Coded Allergies Type Severity Reaction Last Updated Verified nitroglycerin Allergy Severe Anaphylaxis 03/28/15 Yes CHEL Inhibitors Allergy Intermediate 07/23/15 Yes inositol niacinate Allergy Intermediate 05/22/16 Yes niacin Allergy Intermediate 05/22/16 Yes quetiapine Allergy Intermediate 05/22/16 Yes Physical Exam Physical Exam Constitutional: Alert, obese, afebrile, appears in mild discomfort. [] HENT: Normocephalic, atraumatic, bilateral external ears normal, oropharynx moist, no oral exudates, nose normal. [] Eyes: PERRLA, EOMI, conjunctiva normal, no discharge. [] Neck: Normal range of motion, no tenderness, supple, no stridor. [] Cardiovascular: Regular rate, irregular rhythm, no murmur [] Lungs & Thorax: Bilateral breath sounds clear to auscultation [] Abdomen: Bowel sounds normal, soft, left lower quadrant tenderness to palpation , no masses, no pulsatile masses. [] Rectal: No hemorrhoids, nontender on exam, green yellow stool with no gross blood. Skin: Warm, dry, no erythema, no rash. [] Back: No tenderness, no CVA tenderness. [] Extremities: No tenderness, no cyanosis, no clubbing, ROM intact, no edema. [] Neurologic: Alert and oriented X 3, normal motor function, normal sensory function, no focal deficits noted. [] Current Patient Data Vital Signs Vital Signs Date Time Temp Pulse Resp B/P Pulse Ox O2 Delivery O2 Flow Rate FiO2 05/30/16 02:05 98.3 96 18 143/98 97 Room Air 98.3 Lab Values Laboratory Tests Test 05/30/16 02:15 05/30/16 03:15 05/30/16 03:20 White Blood Count 6.9x10^3/uL (4.0-11.0) Red Blood Count 4.60x10^6/uL (4.30-5.70) Hemoglobin 15.7g/dL (13.0-17.5) Hematocrit 46.3% (39.0-53.0) Mean Corpuscular Volume 101fL (79-100) H Mean Corpuscular Hemoglobin 34pg (25-35) Mean Corpuscular Hemoglobin Concent 34g/dL (31-37) Red Cell Distribution Width 12.9% (11.5-14.5) Platelet Count 150x10^3/uL (140-400) Neutrophils (%) (Auto) 56% (31-73) Lymphocytes (%) (Auto) 26% (24-48) Monocytes (%) (Auto) 9% (0-9) Eosinophils (%) (Auto) 9% (0-3) H Basophils (%) (Auto) 1% (0-3) Neutrophils # (Auto) 3.8x10^3uL (1.8-7.7) Lymphocytes # (Auto) 1.8x10^3/uL (1.0-4.8) Monocytes # (Auto) 0.6x10^3/uL (0.0-1.1) Eosinophils # (Auto) 0.6x10^3/uL (0.0-0.7) Basophils # (Auto) 0.1x10^3/uL (0.0-0.2) Sodium Level 143mmol/L (136-145) Potassium Level 3.7mmol/L (3.5-5.1) Chloride Level 105mmol/L (98-107) Carbon Dioxide Level 29mmol/L (21-32) Anion Gap 9 (6-14) Blood Urea Nitrogen 13mg/dL (8-26) Creatinine 0.9mg/dL (0.7-1.3) Estimated GFR (Cockcroft-Gault) 90.1 Glucose Level 186mg/dL (70-99) H Calcium Level 8.7mg/dL (8.5-10.1) Magnesium Level 2.0mg/dL (1.8-2.4) Total Bilirubin 0.5mg/dL (0.2-1.0) Direct Bilirubin 0.1mg/dL (0.0-0.2) Aspartate Amino Transferase (AST) 56U/L (15-37) H Alanine Aminotransferase (ALT) 87U/L (16-63) H Alkaline Phosphatase 75U/L (46-116) Creatine Kinase 161U/L (39-308) Creatine Kinase MB (Mass) 1.9ng/mL (0.0-3.6) Creatine Kinase MB Relative Index 1.2% (0-4) Troponin I Quantitative < 0.017ng/mL (0.000-0.055) NM-Cmh-L-Type Natriuretic Peptide 563pg/mL (0-124) H Total Protein 7.6g/dL (6.4-8.2) Albumin 3.6g/dL (3.4-5.0) Lipase 226U/L (73-393) Urine Collection Type Unknown Urine Color Yellow Urine Clarity Clear Urine pH 6.5 Urine Specific [place] >=1.030 Urine Protein Negativemg/dL (NEG-TRACE) Urine Glucose (UA) >=1000mg/dL (NEG) Urine Ketones (Stick) Negativemg/dL (NEG) Urine Blood Negative (NEG) Urine Nitrite Negative (NEG) Urine Bilirubin Negative (NEG) Urine Urobilinogen Dipstick 1.0mg/dL (0.2 mg/dL) Urine Leukocyte Esterase Negative (NEG) Urine RBC Occ/HPF (0-2) Urine WBC 5-10/HPF (0-4) Urine Squamous Epithelial Cells Few/LPF Urine Bacteria 0/HPF (0-FEW) Urine Mucus Mod/LPF Urine Opiates Screen Neg (NEG) Urine Methadone Screen Neg (NEG) Urine Barbiturates Neg (NEG) Urine Phencyclidine Screen Neg (NEG) Urine Amphetamine/Methamphetamine Neg (NEG) Urine Benzodiazepines Screen Neg (NEG) Urine Cocaine Screen Neg (NEG) Urine Cannabinoids Screen Neg (NEG) Urine Ethyl Alcohol Neg (NEG) Stool Occult Blood Negative (NEG) Laboratory Tests 05/30/16 02:15 Laboratory Tests 05/30/16 02:15 EKG EKG Interpreted by me: Heart rate 100, sinus rhythm, multiple PACs, left bundle branch block, no acute ST/T-wave abnormalities present [] Radiology/Procedures Radiology/Procedures 3 view acute abdominal series interpreted by me: No pulmonary infiltrates or effusions, cardiomegaly present, nonobstructive bowel gas pattern, no free air under the diaphragm. [] Course & Med Decision Making Course & Med Decision Making Pertinent Labs and Imaging studies reviewed. (See chart for details) The patient's lab work was unremarkable. On reevaluation, patient continues to complain of left-sided chest pain. The patient states that his pain is so severe that he is now having suicidal ideation. The patient's pain complaints appear to be chronic, however I do have concern that due to the patient's syncopal episode and history of cardiomyopathy the patient would not be able to be medically cleared at this time for psychiatric evaluation. The patient will need admission to the hospital for further workup of syncope and I recommended patient will need psychiatric consultation for suicidal ideation. Patient amended to Dr. Castellano. Jaime Disclaimer Jaime Disclaimer This electronic medical record was generated, in whole or in part, using a voice recognition dictation system. Departure Departure Impression: Primary Impression: Syncope Additional Impressions: Suicidal ideation Cardiomyopathy Chronic chest pain Chronic abdominal pain Disposition: ADMITTED INPATIENT Admitting Physician: Char Castellano Condition: GUARDED Referrals: UNKNOWN PCP NAME (PCP) Problem Qualifiers Primary Impression: Syncope Syncope type: unspecified Qualified Code: R55 - Syncope and collapse Additional Impressions: Cardiomyopathy Cardiomyopathy type: unspecified Qualified Code: I42.9 - Cardiomyopathy, unspecified MARIANN VIGIL MD May 30, 2016 02:42
[2016-05-30] MEDS ORDERED: ASPIRIN 81 MG TAB.CHEW PO ONE (02:45)
[2016-05-30 02:59] LABS: CALCIUM 8.7 mg/dL (8.5-10.1); CREATININE 0.9 mg/dL (0.7-1.3); GFR 90.1; POTASSIUM 3.7 mmol/L (3.5-5.1)
[2016-05-30 03:05] LABS: ALBUMIN 3.6 g/dL (3.4-5.0); DIRECT BILIRUBIN 0.1 mg/dL (0.0-0.2); TOTAL BILIRUBIN 0.5 mg/dL (0.2-1.0); TOTAL PROTEIN 7.6 g/dL (6.4-8.2)
[2016-05-30 03:10] LABS: CKMB INDEX 1.2 % (0-4); CKMB MASS 1.9 ng/mL (0.0-3.6)
[2016-05-30 03:26] LABS: BILIRUBIN,URINE NEGATIVE (NEG); GLUCOSE,URINE >=1000 mg/dL (NEG); NITRITE,URINE NEGATIVE (NEG); PH,URINE 6.5; PROTEIN,URINE NEGATIVE (NEG-TRACE)
[2016-05-30 03:31] LABS: BACTERIA,URINE 0 /HPF (0-FEW); RBC,URINE OCC /HPF (0-2); SQUAMOUS EPITHELIAL CELL,UR FEW /LPF
[2016-05-30 03:32] LABS: BARBITURATES NEG (NEG); BENZODIAZEPINES NEG (NEG); CANNABINOIDS NEG (NEG); COCAINE NEG (NEG); METHADONE NEG (NEG); OPIATES NEG (NEG); PHENCYCLIDINE NEG (NEG)
[2016-05-30 03:41] LABS: NEG OBC FOB NEG; POS OBC FOB POS
[2016-05-30 03:42] LABS: ETHANOL, URINE NEG (NEG)
[2016-05-30] MEDS ORDERED: ACETAMINOPHEN 325 MG TABLET. PO PRN (04:15)
[2016-05-30] MEDS ORDERED: ONDANSETRON PF 4 MG/2 ML VIAL. IV PRN (04:15)
[2016-05-30] MEDS: IV NORMAL SALINE 1000ML BAG 1,000 ML IV SCH ×2 (04:30→14:30)
--- NOTE | 2016-05-30 05:06 | ACF ---
Admission Forms Criteria SYNCOPE Clinical Indications for Admission to Inpatient Care ( Place 'X' for any and all applicable criteria): Admission is indicated for syncope and ANY ONE of the following (1)(2)(3)(4)(5) (6)(7) : [X]I. Inpatient admission required rather than observation care (Also use Syncope: Observation Care Criteria as appropriate) because of ANY ONE of the following: [ ]a) Hemodynamic instability that is severe or persistent [ ]b) Cardiac arrhythmias of immediate concern identified or strongly suspected (eg, needs electrophysiologic study) [ ]c) Acute coronary syndrome identified (Also use Myocardial Infarction or Angina Criteria form ) [ ]d) Structural cardiac disorder (eg, aortic stenosis) suspected as cause that requires immediate correction [ ]e) Respiratory symptoms (eg, dyspnea, tachypnea) that are severe or persistent [ ]f) Neurologic signs or symptoms that are severe or persistent ( eg, stroke, seizures, altered mental status) [ ]g) Severe electrolyte abnormalities requiring inpatient care [ ]h) Supplemental oxygen or respiratory treatment for over 24 hrs that are performable only in acute inpatient setting [ ]i) IV fluid to replace significant ongoing (eg, for over 24 hrs ) losses (>3 L/m2 per day) [ ]j) Continuous intravenous infusion of anticoagulation, platelet inhibitor, vasoactive, or antiarrhythmic medication(15)(16) [ ]k) Pulmonary artery catheter monitoring [ ]l) Temporary pacemaker placement(17) [ ]m) Emergent cardioversion(18) [X]n) Other conditions, treatment or monitoring requiring inpatient admission [ ]II. Suspicion of imminently dangerous cause (eg, rare causes like pericardial tamponade, pulmonary embolism) [ ]III. Syncope causing severe injury requiring hospitalization Extended stay beyond goal length of stay may be needed for(28) [ ]a) Dangerous arrhythmia(15)(23)(27)(29) [ ]b) Myocardial ischemia [ ]c) Seizure disorder [ ]d) Syncope-related injuries The original [employer] content created by [employer] has been revised. The portions of the content which have been revised are identified through the use of italic text or in bold, and [employer] has neither reviewed nor approved the modified material. All other unmodified content is copyright [employer]. Please see references footnoted in the original [facility] edition 2016 Admission Criteria Met?: Yes ERIN RODRIGUEZ May 30, 2016 05:06
[2016-05-30 05:14] VITALS: BP 137/97
--- NOTE | 2016-05-30 06:21 | EKG ---
[facility] [address] [place] [address] Test Date: 2016-05-30 Test Time: 02:07:31 Pat Name: JOHN ARRIETA Department: Room: 201 1 Gender: M Visual Supervisor: : [id number] Requested By: MARIANN VIGIL Order Number: [id number] Reading MD: Farida Valles Measurements Intervals [place] Rate: 100 P: 43 TN: 162 QRS: 6 QRSD: 106 T: 9 QT: 372 QTc: 483 Interpretive Statements SINUS RHYTHM VENTRICULAR PREMATURE COMPLEX(ES) QRS(T) CONTOUR ABNORMALITY CONSISTENT WITH ANTEROSEPTAL INFARCT PROBABLY OLD Electronically Signed On 05-30-2016 19:53:50 CDT by Farida Valles
[2016-05-30 07:10] VITALS: BP 135/97
[2016-05-30] MEDS ORDERED: SPIR25TA3 PO (07:24)
--- NOTE | 2016-05-30 07:27 | RAD ---
Acute abdomen series with chest, 3 views, 05/30/2016: History: Chest and abdominal pain Gas is present in large and small bowel in a nonspecific pattern. No free air is seen in the abdomen. There is no evidence of organomegaly. Surgical clips in the right upper quadrant suggest a previous cholecystectomy. A left-sided transvenous pacemaker is in place with 2 leads extending into the right heart. The heart size and pulmonary vascularity are normal. No pulmonary infiltrates are seen. IMPRESSION: No acute abdominal abnormality is detected.
[2016-05-30] MEDS ORDERED: VENTOLIN HFA18 GM INH (08:03)
[2016-05-30] MEDS ORDERED: ALBUTEROL SULFATE 2.5 MG/3 ML NEBU. NEB PRN (10:30)
--- NOTE | 2016-05-30 10:53 | HP ---
ADMIT DATE: 05/30/2016 CHIEF COMPLAINT: Chest pain and suicidal ideation. HISTORY OF PRESENT ILLNESS: The patient is a pleasant 50-year-old male who had some chest pain. He had a near syncopal episode as well. He apparently took quite a few tablets of amiodarone a few days ago too. He has now been admitted to the telemetry floor where we were checking cardiac enzymes and doing telemetry. He did have some SVT within the past [address] Samuel has been consulted for checking amiodarone levels. PAST MEDICAL HISTORY: CHF with 20% ejection fraction, depression, diabetes, hypertension, cardiomyopathy, obesity, previous suicide attempts, alcoholism, pacemaker, cholecystectomy, defibrillator, history of MRSA. ALLERGIES: CHEL INHIBITORS, NIACIN, NITROGLYCERIN AND QUETIAPINE. FAMILY HISTORY: Coronary artery disease. SOCIAL HISTORY: He does not take drugs or smoke. He used to have problems with alcohol issues. MEDICATIONS: Reviewed, please refer the MRAD. REVIEW OF SYSTEMS: GENERAL: No history of weight change, weakness or fevers. SKIN: No bruising, hair changes or rashes. EYES: No blurred, double or loss of vision. NOSE AND THROAT: No history of nosebleeds, hoarseness or sore throat. HEART: No history of palpitations or shortness of breath on exertion. He complains of chest pain. LUNGS: Denies cough, hemoptysis, wheezing or shortness of breath. GASTROINTESTINAL: Denies changes in appetite, nausea, vomiting, diarrhea or constipation. GENITOURINARY: No history of frequency, urgency, hesitancy or nocturia. NEUROLOGIC: Denies history of numbness, tingling, tremor or weakness. PSYCHIATRIC: No history of panic, anxiety or depression. ENDOCRINE: No history of heat or cold intolerance, polyuria or polydipsia. EXTREMITIES: Denies muscle weakness, joint pain, pain on walking or stiffness. PHYSICAL EXAMINATION: VITAL SIGNS: Temperature afebrile, pulse 74, respirations 18, blood pressure 113/60. GENERAL: He is alert, cooperative. HEART: Normal S1, S2. LUNGS: Clear. ABDOMEN: Soft. EXTREMITIES: No edema. SKIN: No rashes. PSYCHIATRIC: He has a little bit of a flat affect, but he is stable. He denies any suicidal ideation at this time. ENDOCRINE: No thyromegaly. LYMPHATICS: No cervical nodes. HEMATOPOIETIC: No bruising. LABORATORY DATA: White count 6.9, hemoglobin 15.7, platelets 150. Electrolytes are normal other than glucose of 186. AST and ALT are little high at 56 and 87. Troponin 0. BNP 563. Acute abdominal series negative. ASSESSMENT AND PLAN: Chest pain and suicidal ideation with probable amiodarone toxicity and arrhythmias. The patient has been admitted. We will continue to check serial enzymes, serial EKGs, cardiac monitoring. Consult Cardiology. Continue home medicines, but will hold his amiodarone for now. Echocardiogram. MARCELA PEREZ DO DR: JAY/vicente JOB#: [id number] / [id number]
[2016-05-30] MEDS ORDERED: LINAGLIPTIN 5 MG TABLET PO SCH (11:00)
[2016-05-30] MEDS ORDERED: LOSARTAN POTASSIUM 25 MG TABLET. PO SCH (11:00)
[2016-05-30] MEDS ORDERED: SPIRONOLACTONE 25 MG TABLET PO SCH (11:00)
[2016-05-30] MEDS ORDERED: CARVEDILOL 3.125 MG TABLET PO SCH (11:00)
[2016-05-30 11:59] VITALS: BP 138/84
[2016-05-30] MEDS ORDERED: NON FORMULARY ITEM (Albuterol Sulfate (Ventolin Hfa Inhaler) 2 PUFF) INH SCH (12:00)
--- NOTE | 2016-05-30 13:11 | PDOC2 ---
CONSULT Date of Consult Date of Consult DATE: 05/30/16 TIME: 13:05 Reason for Consult Reason for Consult: Syncope and Chest pain Referring Physician Referring Physician: Dr Castellano Identification/Chief Complaint Chief Complaint Syncope, chest pain History of Present Illness Reason for Visit: 50 year old male previously known to this service presents after a syncopal episode yesterday as he was leaving his apartment and about to go down a flight of stairs. He states his neighbor found him unconscious in the stairwell, which he does not remember going down. The neighbor told the patient he was unconscious for around 5-8 minutes. He also states he felt several "PVCs" yesterday afternoon prior to syncopal episode. Denies any edema or shortness of breath. Patient has a known history of cardiomyopathy and currently has an AICD in place. He follows at [facility] as an outpatient, but has previously been seen by me on admissions at [place]. Past Medical History Cardiovascular: CAD, CHF, HTN, Other Pulmonary: No pertinent hx Psych: Bipolar, Depression, Other Musculoskeletal: low back pain Past Surgical History Past Surgical History: Other Family History Family History: Family History Unknown Social History ALCOHOL: other Drugs: None Current Problem List Problem List Problems Medical Problems: (1) Cardiomyopathy Status: Acute (2) Chronic abdominal pain Status: Acute (3) Chronic chest pain Status: Acute (4) Suicidal ideation Status: Acute (5) Syncope Status: Acute Current Medications Current Medications Current Medications Aspirin 324 mg 324 mg 1X ONCE PO Last administered on 05/30/16 03:06; Start 05/30/16 at 02:45; Stop 05/30/16 at 02:46; Status DC Sodium Chloride (Iv Sodium Chloride 0.9% 1000ml Bag) 1,000 ml @ 100 mls/hr Q10H IV Last administered on 05/30/16 03:06; Start 05/30/16 at 02:30; Stop at 12:29; Status DC Ondansetron HCl 4 mg 4 mg PRN Q8HRS PRN IV NAUSEA/VOMITING; Start 05/30/16 at 04:15; Stop 05/31/16 at 04:14 Sodium Chloride (Iv Sodium Chloride 0.9% 1000ml Bag) 1,000 ml @ 100 mls/hr Q10H IV ; Start 05/30/16 at 04:30; Stop 05/31/16 at 04:29 Acetaminophen (Tylenol) 650 mg PRN Q4HRS PRN PO FEVER; Start 05/30/16 at 04:15 ; Stop 05/31/16 at 04:14 Amiodarone HCl (Cordarone) 100 mg BID PO ; Start 05/30/16 at 21:00; Stop at 21:00; Status DC Atorvastatin Calcium (Lipitor) 40 mg QHS PO ; Start 05/30/16 at 21:00 Carvedilol (Coreg) 3.125 mg BIDWMEALS PO Last administered on 05/30/16 10:48; Start 05/30/16 at 11:00 Furosemide (Lasix) 40 mg QODAY PO ; Start 05/31/16 at 09:00 Potassium Chloride (Klor-Con) 20 meq QODAY PO ; Start 05/31/16 at 09:00 Spironolactone (Aldactone) 25 mg DAILY PO Last administered on 05/30/16 10:47 ; Start 05/30/16 at 11:00 Non-Formulary Medication 2 puff Q4HRS INH FOR ASTHMA; Start 05/30/16 at 12:00; Stop 05/30/16 at 12:00; Status DC Linagliptin (Tradjenta) 5 mg DAILY PO Last administered on 05/30/16 10:47; Start 05/30/16 at 11:00 Losartan Potassium (Cozaar) 25 mg DAILY PO Last administered on 05/30/16 10:48 ; Start 05/30/16 at 11:00 Albuterol Sulfate (Ventolin Neb Soln) 2.5 mg PRN Q4HRS PRN NEB SHORTNESS OF BREATH; Start 05/30/16 at 10:30 Active Scripts Active Reported Ventolin Hfa Inhaler (Albuterol Sulfate) 18 Gm Hfa.aer.ad 2 Puff INH Q4HRS Spironolactone 25 Mg Tablet 1 Tab PO DAILY Atorvastatin Calcium 40 Mg Tablet 1 Tab PO QHS Januvia (Sitagliptin Phosphate) 100 Mg Tablet 1 Tab PO DAILY Amiodarone Hcl 200 Mg Tablet 100 Mg PO BID Diovan (Valsartan) 40 Mg Tablet 40 Mg PO DAILY Carvedilol 3.125 Mg Tablet 1 Tab PO BID Furosemide 40 Mg Tablet 1 Tab PO QODAY Potassium Chloride 20 Meq Tab.er.prt 1 Tab PO QODAY Allergies Allergies: Coded Allergies: nitroglycerin (Verified Allergy, Severe, Anaphylaxis, 03/28/15) CHEL Inhibitors (Verified Allergy, Intermediate, 07/23/15) inositol niacinate (Verified Allergy, Intermediate, 05/22/16) niacin (Verified Allergy, Intermediate, 05/22/16) quetiapine (Verified Allergy, Intermediate, 05/22/16) Physical Exam General: Alert, Cooperative, No acute distress Lungs: Clear to auscultation, Normal air movement Heart: Regular rate, Normal S1, Normal S2 Extremities: No edema Vitals VITALS Vital Signs Date Time Temp Pulse Resp B/P Pulse Ox O2 Delivery O2 Flow Rate FiO2 05/30/16 11:42 Room Air 05/30/16 10:48 85 135/97 05/30/16 07:10 97.2 19 91 97.2 Labs Labs Laboratory Tests Test 05/30/16 02:15 05/30/16 03:15 05/30/16 03:20 05/30/16 10:05 White Blood Count 6.9x10^3/uL (4.0-11.0) Red Blood Count 4.60x10^6/uL (4.30-5.70) Hemoglobin 15.7g/dL (13.0-17.5) Hematocrit 46.3% (39.0-53.0) Mean Corpuscular Volume 101fL (79-100) Mean Corpuscular Hemoglobin 34pg (25-35) Mean Corpuscular Hemoglobin Concent 34g/dL (31-37) Red Cell Distribution Width 12.9% (11.5-14.5) Platelet Count 150x10^3/uL (140-400) Neutrophils (%) (Auto) 56% (31-73) Lymphocytes (%) (Auto) 26% (24-48) Monocytes (%) (Auto) 9% (0-9) Eosinophils (%) (Auto) 9% (0-3) Basophils (%) (Auto) 1% (0-3) Neutrophils # (Auto) 3.8x10^3uL (1.8-7.7) Lymphocytes # (Auto) 1.8x10^3/uL (1.0-4.8) Monocytes # (Auto) 0.6x10^3/uL (0.0-1.1) Eosinophils # (Auto) 0.6x10^3/uL (0.0-0.7) Basophils # (Auto) 0.1x10^3/uL (0.0-0.2) Sodium Level 143mmol/L (136-145) Potassium Level 3.7mmol/L (3.5-5.1) Chloride Level 105mmol/L (98-107) Carbon Dioxide Level 29mmol/L (21-32) Anion Gap 9 (6-14) Blood Urea Nitrogen 13mg/dL (8-26) Creatinine 0.9mg/dL (0.7-1.3) Estimated GFR (Cockcroft-Gault) 90.1 Glucose Level 186mg/dL (70-99) Calcium Level 8.7mg/dL (8.5-10.1) Magnesium Level 2.0mg/dL (1.8-2.4) Total Bilirubin 0.5mg/dL (0.2-1.0) Direct Bilirubin 0.1mg/dL (0.0-0.2) Aspartate Amino Transf (AST/SGOT) 56U/L (15-37) Alanine Aminotransferase (ALT/SGPT) 87U/L (16-63) Alkaline Phosphatase 75U/L (46-116) Creatine Kinase 161U/L (39-308) Creatine Kinase MB (Mass) 1.9ng/mL (0.0-3.6) Creatine Kinase MB Relative Index 1.2% (0-4) Troponin I Quantitative < 0.017ng/mL (0.000-0.055) < 0.017ng/mL (0.000-0.055) WM-Hyv-[id number]-Type Natriuretic Peptide 563pg/mL (0-124) Total Protein 7.6g/dL (6.4-8.2) Albumin 3.6g/dL (3.4-5.0) Lipase 226U/L (73-393) Urine Collection Type Unknown Urine Color Yellow Urine Clarity Clear Urine pH 6.5 Urine Specific Jasper >=1.030 Urine Protein Negativemg/dL (NEG-TRACE) Urine Glucose (UA) >=1000mg/dL (NEG) Urine Ketones (Stick) Negativemg/dL (NEG) Urine Blood Negative (NEG) Urine Nitrite Negative (NEG) Urine Bilirubin Negative (NEG) Urine Urobilinogen Dipstick 1.0mg/dL (0.2 mg/dL) Urine Leukocyte Esterase Negative (NEG) Urine RBC Occ/HPF (0-2) Urine WBC 5-10/HPF (0-4) Urine Squamous Epithelial Cells Few/LPF Urine Bacteria 0/HPF (0-FEW) Urine Mucus Mod/LPF Urine Opiates Screen Neg (NEG) Urine Methadone Screen Neg (NEG) Urine Barbiturates Neg (NEG) Urine Phencyclidine Screen Neg (NEG) Urine Amphetamine/Methamphetamine Neg (NEG) Urine Benzodiazepines Screen Neg (NEG) Urine Cocaine Screen Neg (NEG) Urine Cannabinoids Screen Neg (NEG) Urine Ethyl Alcohol Neg (NEG) Stool Occult Blood Negative (NEG) Laboratory Tests Test 05/30/16 02:15 05/30/16 03:15 05/30/16 03:20 05/30/16 10:05 White Blood Count 6.9x10^3/uL (4.0-11.0) Red Blood Count 4.60x10^6/uL (4.30-5.70) Hemoglobin 15.7g/dL (13.0-17.5) Hematocrit 46.3% (39.0-53.0) Mean Corpuscular Volume 101fL (79-100) Mean Corpuscular Hemoglobin 34pg (25-35) Mean Corpuscular Hemoglobin Concent 34g/dL (31-37) Red Cell Distribution Width 12.9% (11.5-14.5) Platelet Count 150x10^3/uL (140-400) Neutrophils (%) (Auto) 56% (31-73) Lymphocytes (%) (Auto) 26% (24-48) Monocytes (%) (Auto) 9% (0-9) Eosinophils (%) (Auto) 9% (0-3) Basophils (%) (Auto) 1% (0-3) Neutrophils # (Auto) 3.8x10^3uL (1.8-7.7) Lymphocytes # (Auto) 1.8x10^3/uL (1.0-4.8) Monocytes # (Auto) 0.6x10^3/uL (0.0-1.1) Eosinophils # (Auto) 0.6x10^3/uL (0.0-0.7) Basophils # (Auto) 0.1x10^3/uL (0.0-0.2) Sodium Level 143mmol/L (136-145) Potassium Level 3.7mmol/L (3.5-5.1) Chloride Level 105mmol/L (98-107) Carbon Dioxide Level 29mmol/L (21-32) Anion Gap 9 (6-14) Blood Urea Nitrogen 13mg/dL (8-26) Creatinine 0.9mg/dL (0.7-1.3) Estimated GFR (Cockcroft-Gault) 90.1 Glucose Level 186mg/dL (70-99) Calcium Level 8.7mg/dL (8.5-10.1) Magnesium Level 2.0mg/dL (1.8-2.4) Total Bilirubin 0.5mg/dL (0.2-1.0) Direct Bilirubin 0.1mg/dL (0.0-0.2) Aspartate Amino Transf (AST/SGOT) 56U/L (15-37) Alanine Aminotransferase (ALT/SGPT) 87U/L (16-63) Alkaline Phosphatase 75U/L (46-116) Creatine Kinase 161U/L (39-308) Creatine Kinase MB (Mass) 1.9ng/mL (0.0-3.6) Creatine Kinase MB Relative Index 1.2% (0-4) Troponin I Quantitative < 0.017ng/mL (0.000-0.055) < 0.017ng/mL (0.000-0.055) GC-Qqg-Z-Type Natriuretic Peptide 563pg/mL (0-124) Total Protein 7.6g/dL (6.4-8.2) Albumin 3.6g/dL (3.4-5.0) Lipase 226U/L (73-393) Urine Collection Type Unknown Urine Color Yellow Urine Clarity Clear Urine pH 6.5 Urine Specific Jasper >=1.030 Urine Protein Negativemg/dL (NEG-TRACE) Urine Glucose (UA) >=1000mg/dL (NEG) Urine Ketones (Stick) Negativemg/dL (NEG) Urine Blood Negative (NEG) Urine Nitrite Negative (NEG) Urine Bilirubin Negative (NEG) Urine Urobilinogen Dipstick 1.0mg/dL (0.2 mg/dL) Urine Leukocyte Esterase Negative (NEG) Urine RBC Occ/HPF (0-2) Urine WBC 5-10/HPF (0-4) Urine Squamous Epithelial Cells Few/LPF Urine Bacteria 0/HPF (0-FEW) Urine Mucus Mod/LPF Urine Opiates Screen Neg (NEG) Urine Methadone Screen Neg (NEG) Urine Barbiturates Neg (NEG) Urine Phencyclidine Screen Neg (NEG) Urine Amphetamine/Methamphetamine Neg (NEG) Urine Benzodiazepines Screen Neg (NEG) Urine Cocaine Screen Neg (NEG) Urine Cannabinoids Screen Neg (NEG) Urine Ethyl Alcohol Neg (NEG) Stool Occult Blood Negative (NEG) Assessment/Plan Assessment/Plan Cardiomyopathy with AICD in place CAD Syncope I have recommended to this patient in the past that he needed to be evaluated for a heart transplant. He was supposed to have seen me in the office but did not follow-up with that. He however had visited a new mold cleaner and [facility]. I have suggested that he needs to go to [facility] and to be evaluated for a possible heart transplant. The patient agrees with this and states that he will proceed with that approach. The pacemaker/AICD histograms were checked and the patient has not had any significant dysrhythmias over the past couple of days. There were no shocks and no charging of the defibrillator. In view of this it is not likely that it was a dysrhythmia that caused the syncopal episode. May need to consider a neurology consult to try to identify the etiology of the syncopal episode. This may be done as an inpatient or as an outpatient. Thank you very much for asking me to participate in the care of this patient EL HATFIELD MD May 30, 2016 13:11
[2016-05-30] MEDS ORDERED: ATORVASTATIN CALCIUM 40 MG TABLET. PO SCH (21:00)
[2016-05-30] MEDS ORDERED: AMIODARONE HCL 200 MG TABLET. PO SCH (21:00)
[2016-05-31] MEDS ORDERED: FUROSEMIDE 40 MG TABLET PO SCH (09:00)
[2016-05-31] MEDS ORDERED: POTASSIUM CHLORIDE 20 MEQ TABLET.ER. PO SCH (09:00)
[2016-06-01 16:18] LABS: AMIODARONE 1.2 ug/mL (1.0-2.5); DESETHYLAMIODARONE 0.8 ug/mL (1.0-2.5)
== END 2016-05-30 17:19 | DRG 312 ==
LOC: ER 02:01 → 2 NORTH 04:01
PROVIDERS: ADMIT Internal Medicine; ATTEND Internal Medicine
DX: R55 Syncope and collapse (principal); I42.9 Cardiomyopathy, unspecified; R45.851 Suicidal ideations; I47.1 Supraventricular tachycardia; R07.89 Other chest pain; E11.9 Type 2 diabetes mellitus without complications; F31.9 Bipolar disorder, unspecified; I50.9 Heart failure, unspecified; I25.10 Atherosclerotic heart disease of native coronary artery without angina pectoris; I11.0 Hypertensive heart disease with heart failure; G89.29 Other chronic pain; E66.9 Obesity, unspecified; F10.20 Alcohol dependence, uncomplicated; M54.5 Low back pain; Z82.49 Family history of ischemic heart disease and other diseases of the circulatory system; Z86.14 Personal history of Methicillin resistant Staphylococcus aureus infection; Z95.810 Presence of automatic (implantable) cardiac defibrillator; Z91.5 Personal history of self-harm; Z88.8 Allergy status to other drugs, medicaments and biological substances
CPT/HCPCS: 36415; 74022; 80048; 80076; 80299; 81001; 82274; 82553; 83690; 83735; 83880; 84484; 85027; 87086; 93005; G0481; J7030; 99285-25